=== PATIENT | male | born 1935 | race Caucasian/White ===

== ENCOUNTER 2023-04-07 06:32 | Inpatient (IN) | payer OTHER, SELFPAY ==
--- NOTE | 2023-03-05 12:07 | CM ---
Addendum entered by Amairani Livingston 03/18/23 09:45:
Spoke again with patient. He would prefer to have VN services due to transportation issues.
Original Note:
Patient is scheduled for an elective L TKR on 04/07/23. Spoke with patient prior to surgery via telephone. Patient had a R TSA at in 2020. Reintroduced role of Orthopedic Navigator. Patient reports that he lives alone in a one story home. There is
either a ramp or two steps to enter. He currently functions independently with occasionally use of a cane or walking sticks. He believes he may have a rollator and standard walker. He has never had VN services. PCP is Dr. Hebert.
Discussed orthopedic program and post surgical plans. Reviewed anticipated length of stay and that goal is for him to return home at discharge. Also reviewed outpatient PT. Patient is in agreement with tentative plan and will go directly to
outpatient PT at [facility]. He will work on having someone stay with him.
Patient will complete online education.
Plan: Orthopedic Navigator will remain available to assist with the care of patient and will reassess discharge needs after surgery.
[2023-03-18 09:25] VITALS: BMI 29.9
[2023-03-18 09:52] LABS: Hematocrit 38.1 % (39.0-52.0); Hemoglobin 13.3 g/dL (13.0-18.0); Mean Corp Hgb Conc. 34.9 g/dL (33.0-37.0); Mean Corpuscular Hgb 32.3 pg (27.0-31.0); Mean Corpuscular Volume 92.5 fL (80.0-94.0); Mean Platelet Volume 9.3 fL (7.4-10.4); Platelet Count 140 10^3/uL (130-400); Red Blood Cell Count 4.12 10^6/uL (4.70-6.10); Red Cell Dist. Width 13.1 % (11.5-14.5); White Blood Cell Count 4.8 10^3/uL (4.8-10.8)
[2023-03-18 10:08] LABS: ALT (SGPT) 35 U/L (0-50); AST (SGOT) 38 U/L (17-59); Alkaline Phosphatase 66 U/L (38-126); Blood Urea Nitrogen 30 mg/dl (9-20); Carbon Dioxide 25 mmol/L (22-30); Chloride 111 mmol/L (98-107); Estimated Creatinine Clearance 47 ml/min; Glucose 84 mg/dl (70-99); Potassium 4.4 mmol/L (3.5-5.1); Sodium 140 mmol/L (135-145); Total Bilirubin 1.5 mg/dl (0.2-1.3); Total Protein 6.2 g/dl (6.3-8.2); eGFR > 60.00
[2023-03-18 15:26] VITALS: BMI 29.9
[2023-04-07] VITALS (9 sets, daily range): BP systolic 132–169; BP diastolic 79–100; PULSE 73; O2SAT 99
[2023-04-07] MEDS: NORMOSOL-R 1000 IV (09:15)
[2023-04-07] MEDS: CELEBREX 200 MG PO (09:17)
[2023-04-07] MEDS: TYLENOL 650 MG PO ×3 (09:18→21:04)
[2023-04-07] MEDS: BACTROBAN NASAL 1 GRAM NASAL (09:18)
[2023-04-07] MEDS: ROXICODONE 5 MG PO ×2 (13:46→21:05)
[2023-04-07] MEDS: NSS 1000 IV (13:47)
--- NOTE | 2023-04-07 14:29 | PTCARENOTE ---
Pt arrived to [facility] from PACU s/p L TKR. Pt NV intact, L knee aquacel C/D/I, IVF infusing. Pt states no pain at this time. Pt oriented to call sanders and room, bed locked and in lowest position, call sanders within reach.
[2023-04-07] MEDS: XARELTO 10 MG PO (17:00)
[2023-04-07] MEDS: NEURONTIN 300 MG PO (21:04)
[2023-04-07] MEDS: ANCEF 5 IV (21:04)
[2023-04-07] MEDS: BACTROBAN 2% OINTMENT 1 APPLIC NASAL (21:05)
[2023-04-07] MEDS: COLACE 100 MG PO (21:05)
[2023-04-07] MEDS: SENOKOT 17.1999999999999993 MG PO (21:05)
[2023-04-07] MEDS: ZETIA 10 MG PO (21:05)
[2023-04-07] MEDS: COREG 3.125 MG PO (21:05)
[2023-04-07] MEDS: DILAUDID 0.5 MG IV (23:12)
[2023-04-08] MEDS: TYLENOL PO ×2 (01:39→05:22)
[2023-04-08 02:01] VITALS: BP 162/88
[2023-04-08] MEDS: ANCEF 5 IV (03:06)
[2023-04-08 03:40] VITALS: BP 142/76
[2023-04-08 05:54] VITALS: BMI 30.5
[2023-04-08] MEDS: SYNTHROID 100 MCG PO (06:28)
[2023-04-08 07:49] VITALS: BP 137/73
[2023-04-08] MEDS: COREG 3.125 MG PO (08:07)
[2023-04-08] MEDS: COLACE 100 MG PO (08:07)
[2023-04-08] MEDS: SENOKOT 17.1999999999999993 MG PO (08:07)
[2023-04-08] MEDS: TYLENOL 650 MG PO ×2 (08:07→11:31)
[2023-04-08] MEDS: LIPITOR 80 MG PO (08:08)
[2023-04-08] MEDS: COZAAR 25 MG PO (08:08)
[2023-04-08] MEDS: BACTROBAN 2% OINTMENT 1 APPLIC NASAL (08:19)
[2023-04-08] MEDS: DILAUDID 0.5 MG IV (09:02)
[2023-04-08 09:51] VITALS: BP 122/62; PULSE 74; O2SAT 99
[2023-04-08 10:54] VITALS: BP 124/69; PULSE 74
--- NOTE | 2023-04-08 11:53 | W.PN.ORTHO ---
Today's Communication / Plan
-
d/c
Assessment
.
Distal Motor Intact: Yes
Dressing:
Clean, dry and intact.
Plan
.
Surgery / Date: Elvira Roper 04/07/23
DVT Prophylaxis: Other (Xarelto )
Activity:
Out of bed.
PT/OT
Discharge Plan: Home w/ VN
Subjective
.
.:
Patient resting comfortably.
Vital Signs and Labs
.
Vital Signs and Labs:
Lab Results
03/18/23 09:13
03/18/23 09:13
Temp Pulse Resp BP Pulse Ox
97.6 F 71 14 137/73 95
04/08/23 07:49 04/08/23 07:49 04/08/23 07:49 04/08/23 07:49 04/08/23 07:49
Non-invasive Hgb result: 13.6
Physical Exam
-
HEENT: No pallor, cyanosis, or jaundice. Throat clear.
NECK: Supple. No JVD.
RESPIRATORY: Lungs clear to auscultation.
CVS: S1, S2 normal. RRR.� No murmur, rub or gallop.
ABDOMEN: Soft, non-tender. No distension. BS+/normal.
EXTREMITIES: strength equal, no calf pain with palpation
CAMP MANAGER: AOx3. No focal deficits. legal cashier grossly intact
--- NOTE | 2023-04-08 12:08 | W.DS.TRANS ---
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
-
Discharge Instructions:
Sleep Apnea Risk Intermediate
Discharge Diagnosis/Procedures L TKA Dr. Roper 04/07/23
Diet Diabetic, Carb Controlled
Activity With Walker
Driving Restrictions No driving
Bathing Restrictions OK to Shower
Other Services VN,PT
Instructions:
Stand-Alone Forms: Total Hip/Knee Replacement D/C
Changes to Home Medications: Yes
Discharge Medications:
DC Medications w/original date entered in [employer]
glucosamine sulfate dipotassium Cl 500 mg-chondroitin 400 mg capsule (Glucosamine Sulfate 2 KCL-Chondroitin) 1 ea PO DAILY Supplement 10/02/15
aibzwonh-zwc-vjidu acid 0.4 mg-lycopene 300 mcg-lutein 250 mcg tablet (Centrum Silver) 1 ea PO QPM Supplement 10/02/15
amiodarone 200 mg tablet (Pacerone) 200 mg PO DAILY Heart disease/condition 05/20/16
atorvastatin 80 mg tablet 80 mg PO DAILY High cholesterol 05/22/16
nitroglycerin 0.4 mg sublingual tablet 0.4 mg sublingual [id number] PRN chest pain #25 tabs 05/31/16
carvedilol 3.125 mg tablet 3.125 mg PO BID Heart disease/condition 03/20/20
levothyroxine 88 mcg tablet 100 mcg PO DAILY Thyroid 03/22/20
losartan 25 mg tablet 25 mg PO BID 05/10/21
ezetimibe 10 mg tablet 10 mg PO DAILY 03/12/23
mupirocin 2 % topical ointment 1 applic topical BID infection prevention #1 tube 03/18/23
Saccharomyces boulardii 250 mg capsule (Florastor) 250 mg PO BID #1 cap 04/08/23
acetaminophen 500 mg tablet (Tylenol Extra Strength) 1,000 mg PO QID scheduled dosing #0 tabs 04/08/23
cefadroxil 500 mg capsule 500 mg PO BID infection prevention #14 caps 04/08/23
dexamethasone 4 mg tablet 4 mg PO BID inflammation #6 tabs 04/08/23
docusate sodium 100 mg capsule (Colace) 100 mg PO BID stool softner #1 cap 04/08/23
famotidine 20 mg tablet 20 mg PO HS GI prophylaxis #30 tabs 04/08/23
gabapentin 300 mg capsule 300 mg PO HS sleep/pain #10 caps 04/08/23
magnesium hydroxide 400 mg/5 mL oral suspension (Milk of Magnesia) 30 ml PO HS PRN Constipation #1 mL 04/08/23
oxycodone 5 mg tablet 5 - 10 mg PO Q6HPRN PRN 1 tab moderate-2 tabs severe pain #30 tabs 04/08/23
rivaroxaban 10 mg tablet (Xarelto) 10 mg PO HS #3 tabs 04/08/23
rivaroxaban 15 mg tablet (Xarelto) 15 mg PO QPM #1 tab 04/08/23
sennosides 8.6 mg tablet (Senokot) 17.2 mg PO BID laxative #2 tabs 04/08/23
Home Medication Changes
cefadroxil 500 mg capsule 500 mg PO BID infection prevention #14 caps 04/08/23
dexamethasone 4 mg tablet 4 mg PO BID inflammation #6 tabs 04/08/23
famotidine 20 mg tablet 20 mg PO HS GI prophylaxis #30 tabs 04/08/23
gabapentin 300 mg capsule 300 mg PO HS sleep/pain #10 caps 04/08/23
oxycodone 5 mg tablet 5 - 10 mg PO Q6HPRN PRN 1 tab moderate-2 tabs severe pain #30 tabs 04/08/23
rivaroxaban 10 mg tablet (Xarelto) 10 mg PO HS #3 tabs 04/08/23
rivaroxaban 15 mg tablet (Xarelto) 15 mg PO QPM #1 tab 04/08/23 -HOLD
Pending Results: No
--- NOTE | 2023-04-08 14:10 | CM ---
Reviewed chart and held rounds with PT, OT and nursing. Patient admitted as planned for elective L TKR. Met with patient at bedside. Confirmed information previously obtained for assessment. Also discussed discharge plans. The plan is for patient to
return home at discharge. His son will be staying with him. Reviewed VN services including start of care (tentatively 04/09), services to be ordered (PT, SN) and frequency/duration of services. Options list provided and PAC data reviewed. Patient
selects VN.
Patient needed a rolling walker. Script obtained and provided to PT to issue walker to patient. He has a cane at home.
VN referral was completed and sent to [facility] through [employer] with request for start of care on 04/09. Confirmation received of their ability to accept case. statement clerks supervisor to fax discharge instructions to [facility] when complete.
Patient will use [facility] pharmacy for discharge prescriptions.
== END 2023-04-08 14:10 | disposition home health service (06) | DRG 470 ==
LOC: 2 SOUTH 06:32
PROVIDERS: ADMITTING PHYSICIAN Specialist; FAMILY PHYSICIAN Internal Medicine Geriatric Medicine
PROC: 0SRD0J9 Replacement of Left Knee Joint with Synthetic Substitute, Cemented, Open Approach (ICD-10-PCS; 2023-04-07)
DX: M17.12 Unilateral primary osteoarthritis, left knee (principal); I50.22 Chronic systolic (congestive) heart failure; I13.0 Hypertensive heart and chronic kidney disease with heart failure and stage 1 through stage 4 chronic kidney disease, or unspecified chronic kidney disease; I42.8 Other cardiomyopathies; I48.92 Unspecified atrial flutter; N18.30 Chronic kidney disease, stage 3 unspecified; E78.5 Hyperlipidemia, unspecified; I25.10 Atherosclerotic heart disease of native coronary artery without angina pectoris; I49.5 Sick sinus syndrome; I44.1 Atrioventricular block, second degree; K21.9 Gastro-esophageal reflux disease without esophagitis; Z79.01 Long term (current) use of anticoagulants; C61 Malignant neoplasm of prostate; E03.9 Hypothyroidism, unspecified; D63.8 Anemia in other chronic diseases classified elsewhere; I73.9 Peripheral vascular disease, unspecified
CPT/HCPCS: 36415; 73560; 80053; 83036; 85027; 87070; 97110; 97116; 97162; 97166; 97530; 97535; C1713; C1776

== ENCOUNTER → 2023-09-19 15:05 | Outpatient (REF) | payer OTHER, SELFPAY | LOC: RCS 15:05 | PROVIDERS: ATTENDING PHYSICIAN Internal Medicine Cardiovascular Disease; FAMILY PHYSICIAN Internal Medicine Geriatric Medicine | DX: I49.5 Sick sinus syndrome (principal); I10 Essential (primary) hypertension; I44.1 Atrioventricular block, second degree; I49.3 Ventricular premature depolarization; I42.8 Other cardiomyopathies | CPT/HCPCS: 93306 ==